=== PATIENT | male | born 1965 | race Caucasian/White ===

== ENCOUNTER 2016-12-30 02:02 | Emergency (ER) | payer OTHER ==
[~2016-12-30] VITALS: Ht 179.1 cm; Wt 81.6 kg
[~2016-12-30 02:02] MED LIST: ATORVASTATIN CA10 MG PO; CARISOPRODOL350 MG PO; DILAUDID 4 MG TA4 MG PO; DILAUDID2 MG PO; IBUPROFEN600 MG PO; MEDROL DOSEPAK1 PAC PO; MULTIVITAMIN1 TAB PO; NEURONTIN300 MG PO; PERCOCET 325 MG1 TAB PO; VALIUM5 M1 PO
--- NOTE | 2016-12-30 02:52 | ED INFLUENZA/URI COMPLAINT ---
History of Present Illness General Chief Complaint: General Adult Stated Complaint: FEVER CHILLS X'S 5 DAYS Source: patient, family, old records Exam Limitations: no limitations Vital Signs & Intake/Output Vital Signs & Intake/Output Vital Signs Date Time Temp Pulse Resp B/P B/P Pulse O2 O2 Flow FiO2 Mean Ox Delivery Rate 12/30 0501 99.3 69 18 116/62 97 Room Air 12/30 0208 97.4 87 18 142/81 97 Room Air Allergies Coded Allergies: No Known Allergies (12/30/16) Reconcile Medications Atorvastatin Calcium (Lipitor) 10 MG TAB 1 TAB PO DAILY CHOLESTEROL (Reported ) Triage Note: TRIAGE: PATIENT TO ER FROM HOME REPORTING +CHILLS AND ENTIRE BODY ACHES SINCE MONDAY, REPORTS "ONLY HAD A TEP OF 101 ONCE BUT OTHERWISE NO FEVERS." AFBRILE IN TRIAGE. DENIES ANY V/D/ RASHES, +NAUSEA TODAY. PATIENT REPORTING "ALSO PAST FEW WEEKS HAVING HEADACHES ON THE TOP OF HEAD." REPORTS "PILLOW SO SWEATY THAT IT WAS SOAKED." Triage Nurses Notes Reviewed? yes Onset: Last week Duration: day(s):, constant, continues in ED Timing: recent history Severity: moderate Prior Episodes/Possible Cause: illness exposure Modifying Factors: Improves With: medication. Associated Symptoms: fever/chills, muscle aches HPI: One week prior to admission patient complains of low-grade fever chills body aches weakness decreased appetite and energy vague lower abdominal pain. The fever would respond to ibuprofen. He also reports having episodes of night sweat and episodic right pelvic pain / inguinal pain. He denies nausea vomiting diarrhea chest pain cough shortness of breath headache dysuria rash bleeding. Past History Travel History Traveled to [place] past 21 day No Medical History Any Pertinent Medical History? see below for history Neurological: NONE EENT: NONE Cardiovascular: hyperlipidemia Respiratory: NONE Gastrointestinal: NONE Hepatic: NONE Renal: NONE Musculoskeletal: NONE Psychiatric: NONE Endocrine: NONE Blood Disorders: NONE Cancer(s): NONE CARPENTER/Reproductive: NONE Tetanus Vaccine: 06/08/13 Surgical History Surgical History: non-contributory Psychosocial History What is your primary language Arabic Tobacco Use: Quit >30 days ago Family History Hx Contributory? No Review of Systems Review of Systems Constitutional: Reports: see HPI, chills, fever, malaise, weakness. EENTM: Reports: no symptoms. Respiratory: Reports: no symptoms. Cardiovascular: Reports: no symptoms. GI: Reports: no symptoms. Genitourinary: Reports: no symptoms. Musculoskeletal: Reports: see HPI, joint pain, muscle pain. Skin: Reports: no symptoms. Neurological/Psychological: Reports: no symptoms. Hematologic/Endocrine: Reports: no symptoms. Immunologic/Allergic: Reports: no symptoms. All Other Systems: Reviewed and Negative Physical Exam Physical Exam General Appearance: well developed/nourished, alert, awake, anxious, moderate distress, thin Head: atraumatic, normal appearance Eyes: Bilateral: normal appearance, PERRL, EOMI. Ears, Nose, Throat: normal ENT inspection, moist mucous membrane Neck: normal inspection, supple, full range of motion, trachea midline, no midline tenderness Respiratory: normal breath sounds, chest non-tender, no respiratory distress, quiet respiration, lungs clear Cardiovascular: regular rate/rhythm, normal peripheral pulses, norml femoral pulses equa Peripheral Pulses: 4+ carotid (R), 4+ carotid (L) Gastrointestinal: normal bowel sounds, soft, non-tender, no organomegaly Back: normal inspection, normal range of motion Extremities: normal inspection, normal capillary refill, normal range of motion, no edema Neurologic/Psych: no motor/sensory deficits, awake, alert, oriented x 3, normal gait, normal mood/affect, 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 Skin: intact, normal color, warm/dry Lymphatic: no anterior cervical yajaira Core Measures Severe Sepsis Present: No Septic Shock Present: No Progress Differential Diagnosis: influenza, pneumonia Plan of Care: Orders Procedure Date/time Status RAPID VIRAL INFLUENZA A 12/30 253 Complete URINALYSIS 12/30 253 Complete COMPREHENSIVE METABOLIC PANEL 12/30 253 Complete CBC WITHOUT DIFFERENTIAL 12/30 253 Complete Laboratory Tests 12/30/16 0317: Anion Gap 9, Estimated GFR > 60, BUN/Creatinine Ratio 12.2, Glucose 97, Calcium 9.4, Total Bilirubin 0.5, AST 119 H, ALT 126 H, Alkaline Phosphatase 110, Total Protein 6.7, Albumin 3.9, Globulin 2.8, Albumin/Globulin Ratio 1.4, CBC w Diff NO MAN DIFF REQ, RBC 4.70, MCV 89.3, MCH 29.7, RDW 13.1, MPV 7.1 L, Gran % 79.7 H, Lymphocytes % 7.8 L, Monocytes % 11.7 H, Eosinophils % 0.3, Basophils % 0.5, Absolute Granulocytes 4.8, Absolute Lymphocytes 0.5 L, Absolute Monocytes 0.7 H, Absolute Eosinophils 0, Absolute Basophils 0, PUBS MCHC 33.2, Urine Color YEL, Urine Clarity CLEAR, Urine pH 6.0, Ur Specific [place] 1.025, Urine Protein NEG, Urine Ketones NEG, Urine Nitrite NEG, Urine Bilirubin NEG, Urine Urobilinogen 0.2, Ur Leukocyte Esterase NEG, Ur Microscopic EXAM NOT REQUIRED, Urine Hemoglobin NEG, Urine Glucose NEG Microbiology 12/30 0312 NASOPHARYN: Influenza Virus A & B Rapid Smear - COMP Diagnostic Imaging: Viewed by Me: Radiology Read, CT Scan. Discussed w/RAD: Radiology Read, CT Scan. Radiology Impression: 1. No acute inflammatory changes identified. Nonspecific fecalization of the terminal ileum, without additional findings for obstruction. There is some prominence of submucosal fat in the distal ileum which could reflect sequelae of old inflammation. 2. Liver appears unremarkable. CXR Impression: no acute abnormality Initial ED EKG: none Departure Departure Time of Disposition: 700 Disposition: HOME OR SELF CARE Condition: Stable Clinical Impression Primary Impression: Acute febrile illness Secondary Impressions: Viral syndrome Referrals: KEENAN MAZARIEGOS DO (PCP/Family) Departure Forms: Customer Survey General Discharge Information
[2016-12-30 03:28] LABS: ABSOLUTE BASOPHIL COUNT 0 /CUMM (0.0-0.2); ABSOLUTE EOSINOPHIL COUNT 0 /CUMM (0.0-0.7); ABSOLUTE GRANULOCYTE CT 4.8 /CUMM (1.4-6.5); ABSOLUTE LYMPH COUNT 0.5 /CUMM (1.2-3.4); ABSOLUTE MONOCYTE COUNT 0.7 /CUMM (0.10-0.60); BASOPHIL % 0.5 % (0.0-2.0); EOSINOPHIL % 0.3 % (0-5); GRANULOCYTE % 79.7 % (42.2-75.2); MEAN CORPUSCULAR HGB 29.7 PG (27.0-31.0); MEAN CORPUSCULAR HGB CONC 33.2 G/DL (33.0-37.0); MEAN CORPUSCULAR VOLUME 89.3 FL (80.0-94.0); MEAN PLATELET VOLUME 7.1 FL (7.4-10.4); PLATELET COUNT 214 /CUMM (130-400); RBC DISTRIBUTION WIDTH 13.1 % (11.5-14.5)
--- NOTE | 2016-12-30 03:39 | RADIOLOGY REPORT ---
EXAMINATION: XR CHEST CLINICAL INFORMATION: Fever, chills COMPARISON: 11/14/2016 TECHNIQUE: 2 views of the chest were obtained. FINDINGS: The lungs are clear with no focal consolidation. No evidence of pneumothorax, pulmonary edema, or pleural effusions. The cardiomediastinal silhouette is unremarkable. No acute osseous findings. IMPRESSION: No acute cardiopulmonary findings.
--- NOTE | 2016-12-30 05:23 | CT SCAN REPORT ---
EXAMINATION: CT ABDOMEN AND PELVIS WITH CONTRAST CLINICAL INFORMATION: Abdominal pain, fever, elevated transaminase; question diverticulitis or hepatitis COMPARISON: 07/27/2007 TECHNIQUE: Multidetector volumetric imaging was performed of the abdomen and pelvis before and after the IV administration of 95 mL of Optiray 320 intravenous contrast. Sagittal and coronal reformatted images were obtained on the technologist's workstation. DLP: 384.78 mGy-cm FINDINGS: LUNG BASES: There is mild dependent atelectasis at the lung bases. LIVER, GALLBLADDER, AND BILIARY TREE: The liver is normal in size, shape, and attenuation. No focal hepatic lesion or biliary ductal dilatation is present. The gallbladder is unremarkable with no evidence of radiopaque gallstones, gallbladder wall thickening, or obvious pericholecystic inflammatory changes. PANCREAS: Unremarkable. SPLEEN: Unremarkable. ADRENAL GLANDS: Unremarkable. KIDNEYS AND URETERS: The kidneys are normal in size, shape, and attenuation. There is a mid left renal cyst versus 2 adjacent cysts measuring up to 3.3 x 1.2 cm in total diameter. No hydronephrosis, hydroureter, or calculi seen. No perinephric stranding. BLADDER: Unremarkable. GASTROINTESTINAL TRACT: The terminal ileum demonstrates fecalization. There is prominence of submucosal fat in the distal small bowel, without significant surrounding inflammatory change. No specific evidence for bowel obstruction. No abnormal colonic wall thickening or pericolonic inflammation is seen. No significant colonic diverticula. The appendix appears collapsed. No free fluid or free air is seen. ABDOMINAL WALL: No significant hernia is appreciated. LYMPH NODES: Normal. VASCULAR: Unremarkable. PELVIC VISCERA: Unremarkable. OSSEOUS STRUCTURES: Limbus vertebra is noted at L3. Degenerative changes are noted in the spine. IMPRESSION: 1. No acute inflammatory changes identified. Nonspecific fecalization of the terminal ileum, without additional findings for obstruction. There is some prominence of submucosal fat in the distal ileum which could reflect sequelae of old inflammation. 2. Liver appears unremarkable.
[2016-12-30 07:30] VITALS: BP 114/74
[2017-01-05] MEDS ORDERED: DOXYCYCLINE HY100 M4 PO (21:00)
== END 2016-12-30 07:31 ==
LOC: ERH 02:02
PROVIDERS: Emergency Medicine
DX: B34.9 Viral infection, unspecified (principal); R50.9 Fever, unspecified
CPT/HCPCS: 74177; 81003; 87804; 87804-59; 96374; J0131